=== PATIENT | female | born 1985 | race Caucasian/White ===

== ENCOUNTER 2021-11-24 11:26 | Inpatient (IN) | payer OTHER ==
[2021-11-24] MEDS ORDERED: ELECTROLYTE-148 SOLN 1,000 ML IV SCH (12:00)
[2021-11-24] MEDS ORDERED: NALOXONE HCL 0.4 MG/ML VIAL IVPUSH PRN (12:28)
[2021-11-24] MEDS ORDERED: FENTANYL/BUPIVACAINE/NS/PF - PCEA - 50 ML DISP.SYRIN EP SCH (12:30)
[2021-11-24] MEDS ORDERED: BUPIVACAINE HCL/PF 0.25% (2.5MG/ML) 10 ML VIAL ONE (12:32)
[2021-11-24 12:47] LABS: BASO % 0.2 % (0-2.0); EOS % 0.1 % (0-4.5); LYMPH % 12.5 % (8-40); MCH 27.4 pg (25.7-33.7); MCHC 34.1 g/dl (32.0-36.0); MEAN CELL VOLUME 80.4 fl (80-96); MONO % 3.7 % (3.8-10.2); NEUT % 83.5 % (42.8-82.8); PLATELET COUNT 329 10^3/uL (134-434); RBC 4.73 M/mm3 (3.60-5.2); RDW 13.9 % (11.6-15.6); WHITE BLOOD COUNT 11.5 K/mm3 (4.0-10.0)
[2021-11-24] MEDS ORDERED: FENTANYL/BUPIVACAINE/NS/PF - PCEA - 50 ML DISP.SYRIN EP ONE (12:57)
[2021-11-24 13:00] LABS: INR 1.01 (0.83-1.09); PROTHROMBIN TIME (PATIENT) 11.6 SEC (9.7-13.0)
[2021-11-24 13:03] LABS: ACTIVATED PTT 28.7 SECONDS (25.2-36.5)
[2021-11-24 13:13] LABS: CALCIUM 9.3 mg/dL (8.5-10.1)
[2021-11-24 13:14] LABS: BLOOD UREA NITROGEN 5.9 mg/dL (7-18)
[2021-11-24 13:17] LABS: CREATININE 0.6 mg/dL (0.55-1.3)
[2021-11-24] MEDS ORDERED: BENZOCAINE 28 GM HEMORRHOIDAL OINTMENT TP PRN (14:43)
[2021-11-24] MEDS ORDERED: ACETAMINOPHEN 325 MG TABLET (FP) PO PRN (14:43)
[2021-11-24] MEDS ORDERED: oxyCODONE HCL 5 MG TABLET PO PRN (14:43)
[2021-11-24] MEDS ORDERED: WITCH HAZEL 50% (TUCKS) 40 PAD/JAR PAD TP PRN (14:43)
[2021-11-24] MEDS ORDERED: BISACODYL 10 MG SUPP.RECT RC PRN (14:43)
[2021-11-24] MEDS ORDERED: METHYLERGONOVINE MALEATE 0.2 MG/1 ML AMP IM PRN (14:43)
[2021-11-24] MEDS ORDERED: BENZOCAINE 20% 57 GM BOTTLE TP PRN (14:43)
[2021-11-24] MEDS ORDERED: OXYTOCIN 20 UNITS in 0.9% NS 20 UNIT/1,000 ML INFUS.BAG IV SCH (14:45)
[2021-11-24 15:06] LABS: HIV INTERPRETATION NEGATIVE (NEGATIVE)
[2021-11-24 15:23] VITALS: BMI 29.9
[2021-11-24 18:04] LABS: ALBUMIN 2.7 g/dl (3.4-5.0); CALCIUM 8.8 mg/dL (8.5-10.1)
[2021-11-24 18:05] LABS: BLOOD UREA NITROGEN 6.5 mg/dL (7-18)
[2021-11-24 18:08] LABS: CREATININE 0.7 mg/dL (0.55-1.3)
[2021-11-24 18:09] LABS: BILIRUBIN,TOTAL 0.3 mg/dL (0.2-1); TOT PROT 6.2 g/dl (6.4-8.2)
[2021-11-24] MEDS: IBUPROFEN 600 MG TABLET (FP) PO PRN (18:28)
[2021-11-25] MEDS: IBUPROFEN 600 MG TABLET (FP) PO PRN ×4 (00:54→21:09)
[2021-11-25 10:00] LABS: BASO % 0.3 % (0-2.0); EOS % 1.1 % (0-4.5); HEMATOCRIT 33.3 % (32.4-45.2); HEMOGLOBIN 11.7 GM/dL (10.7-15.3); LYMPH % 25.9 % (8-40); MCH 28.6 pg (25.7-33.7); MCHC 35.1 g/dl (32.0-36.0); MEAN CELL VOLUME 81.4 fl (80-96); MEAN PLT VOLUME 7.9 fl (7.5-11.1); MONO % 4.5 % (3.8-10.2); NEUT % 68.2 % (42.8-82.8); PLATELET COUNT 292 10^3/uL (134-434); RBC 4.09 M/mm3 (3.60-5.2); RDW 13.8 % (11.6-15.6); WHITE BLOOD COUNT 10.7 K/mm3 (4.0-10.0)
[2021-11-25 13:07] LABS: SARS-CoV-2 NAA Not Detected (Not Detected)
[2021-11-25] MEDS ORDERED: SENNOSIDES/DOCUSATE COMBO (SENNA PLUS) TABLET (UD) PO PRN (22:00)
[2021-11-26 09:37] VITALS: BP 129/82; PULSE 80; TEMP 98.5
[2021-11-26] MEDS: IBUPROFEN 600 MG TABLET (FP) PO PRN (09:52)
== END 2021-11-26 13:00 | disposition home or self-care (01) | DRG 560 ==
LOC: JLDR 11:26 → J3W 16:36
PROVIDERS: ADMIT Obstetrics & Gynecology; ATTEND Obstetrics & Gynecology
PROC: 10E0XZZ Delivery of Products of Conception, External Approach (ICD-10-PCS; principal; 2021-11-24)
PROC: 0W8NXZZ Division of Female Perineum, External Approach (ICD-10-PCS; 2021-11-24)
DX: O80 Encounter for full-term uncomplicated delivery (principal); Z3A.39 39 weeks gestation of pregnancy; Z37.0 Single live birth
CPT/HCPCS: 36415; 59409; 80048; 80053; 85025; 85610; 85730; 86762; 86769; 86780; 86850; 86900; 86901; 87340; 87389; C9803-CS; U0003; U0005

== ENCOUNTER 2024-07-30 10:24 | Day surgery (SDC) | payer OTHER ==
[2024-07-29 11:39] VITALS: BMI 28.1
[2024-07-30] MEDS ORDERED: MIDAZOLAM HCL 2 MG/2 ML SINGLE DOSE VIAL ONE ×2 (11:52→12:24)
[2024-07-30] MEDS ORDERED: DEXAMETHASONE SOD PHOSPHATE 10 MG/1 ML VIAL ONE (11:52)
[2024-07-30] MEDS ORDERED: ROPIVACAINE HCL/PF 100 MG/20 ML VIAL ONE (11:53)
[2024-07-30] MEDS ORDERED: BUPIVACAINE HCL/PF 0.5% (5MG/ML) 10 ML VIAL ONE (12:09)
[2024-07-30] MEDS ORDERED: PROPOFOL 40 ML ONE (12:25)
[2024-07-30] MEDS ORDERED: ONDANSETRON 4 MG/2 ML VIAL ONE (13:25)
[2024-07-30] MEDS ORDERED: ceFAZolin SODIUM 1 GM VIAL ONE (13:25)
[2024-07-30] MEDS ORDERED: oxyCODONE HCL 5 MG TABLET PO PRN (14:11)
[2024-07-30] MEDS ORDERED: ACETAMINOPHEN 1000 MG/100 ML BAG IVPB PRN (14:11)
[2024-07-30] MEDS ORDERED: LACTATED RINGERS SOLUTION 1,000 ML IV SCH (14:15)
[2024-07-30 15:26] VITALS: RESP 16; TEMP 97.3
[2024-07-30 18:35] VITALS: BP 122/78; PULSE 85
== END 2024-07-30 18:35 | disposition home or self-care (01) ==
LOC: FASU 10:24
PROVIDERS: ATTEND Orthopaedic Surgery Sports Medicine
PROC: 0QSJ04Z Reposition Right Fibula with Internal Fixation Device, Open Approach (ICD-10-PCS; principal; 2024-07-30 12:38)
DX: S82.64XA Nondisplaced fracture of lateral malleolus of right fibula, initial encounter for closed fracture (principal); X58.XXXA Exposure to other specified factors, initial encounter; Y93.9 Activity, unspecified; Y92.9 Unspecified place or not applicable
CPT/HCPCS: 27792; C1713; 73610-TC-RT-FY; 81025; 94760; J1100